=== PATIENT | male | born 1970 | race Caucasian/White ===

== ENCOUNTER 2019-07-03 12:09 | Inpatient (IN) | payer MEDICAID ==
[~2019-07-03] VITALS: Ht 170.2 cm; Wt 137.4 kg
[2019-07-03] MEDS ORDERED: OLAN2.5T3 PO (13:36)
[2019-07-03 14:56] LABS: BASOPHILS % (AUTO) 0.5 % (0.0-2.0); EOSINOPHILS % (AUTO) 0.5 % (1.0-6.0); HEMATOCRIT 41.9 % (41-53); HEMOGLOBIN 13.7 g/dL (13.5-17.5); LYMPHOCYTES # (AUTO) 2.8 K/uL (1.0-4.8); MEAN CORPUSCULAR HEMOGLOBIN 27.8 pg (26.0-34.0); MEAN CORPUSCULAR HGB CONC 32.6 G/dL (31.0-37.0); MEAN CORPUSCULAR VOLUME 85 fL (80-100); MONOCYTES % (AUTO) 7.1 % (2.0-9.0); NEUTROPHILS # (AUTO) 9.5 K/uL (1.8-7.7); NEUTROPHILS % (AUTO) 70.9 % (40.0-70.0); PLATELET COUNT (AUTO) 277 K/uL (150-450); RED BLOOD CELL COUNT(AUTO) 4.92 MIL/uL (4.50-5.90); RED CELL DISTRIBUTION WIDTH 13.8 % (11.5-14.5)
[2019-07-03] MEDS ORDERED: ZOLPIDEM TARTRATE 10 MG TABLET PO PRN (15:00)
[2019-07-03] MEDS ORDERED: LORazepam 2 MG TABLET PO PRN (15:00)
[2019-07-03] MEDS ORDERED: HALOPERIDOL 5 MG TABLET PO PRN (15:00)
[2019-07-03 15:08] LABS: ANION GAP 11 mmol/L (8-16); CALCIUM, TOTAL 8.7 mg/dL (8.8-10.5); CARBON DIOXIDE 27 mmol/L (22-29); CHLORIDE 105 mmol/L (98-107); CREATININE 1.04 mg/dL (0.60-1.30); GLOMERULAR FILTR. RATE CALC > 60 mL/min (>60); GLUCOSE,RANDOM 91 mg/dL (70-110); POTASSIUM 3.9 mmol/L (3.5-5.1); SODIUM SERUM 143 mmol/L (136-145); UREA NITROGEN, BLOOD 16 mg/dL (7-18)
[2019-07-03 15:16] LABS: ALANINE AMINOTRANSFERASE 37 U/L (12-78); ALBUMIN 3.6 g/dL (3.4-5.0); ALKALINE PHOSPHATASE 94 U/L (46-116); ASPARTATE AMINOTRANSFERASE 28 U/L (15-37); TOTAL PROTEIN, SERUM 7.9 g/dL (6.4-8.2)
[2019-07-03 17:11] VITALS: BP 137/79
[2019-07-03] MEDS ORDERED: GuaiFENesin/D-METHORPHAN/PHENYLEPH 5 ML LIQUID ORAL.SYG PO PRN (20:15)
[2019-07-03] MEDS ORDERED: GuaiFENesin/D-METHORPHAN [SUGAR-FREE] 200-20MG/10 ML SYRUP UDCUP PO PRN (21:30)
[2019-07-04 08:12] LABS: BASOPHILS % (AUTO) 0.3 % (0.0-2.0); EOSINOPHILS % (AUTO) 1.1 % (1.0-6.0); HEMOGLOBIN 12.6 g/dL (13.5-17.5); LYMPHOCYTES # (AUTO) 2.7 K/uL (1.0-4.8); LYMPHOCYTES % (AUTO) 30.3 % (22.0-44.0); MEAN CORPUSCULAR HEMOGLOBIN 28.3 pg (26.0-34.0); MEAN CORPUSCULAR HGB CONC 33.1 G/dL (31.0-37.0); MEAN CORPUSCULAR VOLUME 86 fL (80-100); MONOCYTES # (AUTO) 0.6 K/uL (0.1-1.0); MONOCYTES % (AUTO) 7.3 % (2.0-9.0); NEUTROPHILS # (AUTO) 5.4 K/uL (1.8-7.7); PLATELET COUNT (AUTO) 253 K/uL (150-450); RED BLOOD CELL COUNT(AUTO) 4.44 MIL/uL (4.50-5.90); RED CELL DISTRIBUTION WIDTH 13.5 % (11.5-14.5)
[2019-07-04 08:59] LABS: CHOL/HDL RATIO 3.7 (4.2-7.3); CHOLESTEROL 103 mg/dL (131-200); HCG,QUANTITATIVE < 1 mIU/mL (0-6); HDL CHOLESTEROL 28 mg/dL (40-60); LDL CHOL (CALC.) 68 mg/dL (0-130); TRIGLYCERIDES 35 mg/dL (15-150)
[2019-07-04] MEDS: AZITHROMYCIN 250 MG TABLET PO SCH (09:03)
[2019-07-04] MEDS: BACITRACIN 28.4 GM OINTMENT TP SCH ×2 (09:03→17:00)
[2019-07-04 10:03] VITALS: BP 95/65
[2019-07-04 18:38] VITALS: BP 120/70
[2019-07-04] MEDS ORDERED: ALBUTEROL SULFATE HFA 90 MCG/PUFF 8 GM INHALER IH PRN (19:30)
[2019-07-04] MEDS ORDERED: MAG HYDROX/AL HYDROX/SIMETH ES 30 ML SUSPENSION UDCUP PO PRN (19:30)
[2019-07-04] MEDS ORDERED: ACETAMINOPHEN 325 MG TABLET PO PRN (19:30)
[2019-07-04] MEDS ORDERED: CloNIDine HCL 0.1 MG TABLET PO PRN (19:30)
[2019-07-04] MEDS ORDERED: MAGNESIUM HYDROXIDE SUSPENSION 30 ML UDCUP PO PRN (19:30)
[2019-07-04] MEDS ORDERED: GuaiFENesin/D-METHORPHAN [SUGAR-FREE] 200-20MG/10 ML SYRUP UDCUP PO PRN (19:30)
[2019-07-04] MEDS ORDERED: LOPERAMIDE HCL 2 MG CAPSULE PO PRN (19:30)
[2019-07-04] MEDS ORDERED: DOCUSATE SODIUM 100 MG CAPSULE PO PRN (19:30)
[2019-07-04] MEDS ORDERED: PETROLATUM,WHITE 28 GM JELLY TP PRN (19:30)
[2019-07-04] MEDS ORDERED: ONDANSETRON HCL 4 MG TABLET PO PRN (19:30)
[2019-07-04] MEDS ORDERED: IBUPROFEN 400 MG TABLET PO PRN (19:30)
[2019-07-04] MEDS ORDERED: NICOTINE 14 MG/24 HOUR PATCH TD PRN (19:30)
[2019-07-04] MEDS ORDERED: OLANZapine 5 MG TABLET PO SCH (21:00)
[2019-07-04] MEDS ORDERED: OLANZapine 2.5 MG TABLET PO SCH (21:00)
[2019-07-05 06:41] VITALS: BP 113/74
[2019-07-05] MEDS: AZITHROMYCIN 250 MG TABLET PO SCH (08:32)
[2019-07-05] MEDS: BACITRACIN 28.4 GM OINTMENT TP SCH ×2 (08:33→16:54)
[2019-07-05 08:40] VITALS: BP 138/60
[2019-07-05 21:36] VITALS: BP 112/72
[2019-07-05] MEDS: SERTRALINE HCL 50 MG TABLET PO SCH (21:54)
[2019-07-05] MEDS: OLANZapine 2.5 MG TABLET PO SCH (21:54)
[2019-07-06 08:39] VITALS: BP 136/84
[2019-07-06] MEDS: BACITRACIN 28.4 GM OINTMENT TP SCH ×2 (09:18→17:14)
[2019-07-06] MEDS: AZITHROMYCIN 250 MG TABLET PO SCH (09:18)
[2019-07-06 16:21] VITALS: BP 130/79
[2019-07-06] MEDS: OLANZapine 2.5 MG TABLET PO SCH (20:16)
[2019-07-06] MEDS: SERTRALINE HCL 50 MG TABLET PO SCH (20:16)
[2019-07-07 07:08] VITALS: BP 126/73
[2019-07-07 08:07] VITALS: BP 126/60
[2019-07-07] MEDS: BACITRACIN 28.4 GM OINTMENT TP SCH ×2 (09:17→16:54)
[2019-07-07] MEDS: AZITHROMYCIN 250 MG TABLET PO SCH (09:17)
[2019-07-07 16:17] VITALS: BP 137/76
[2019-07-07] MEDS: SERTRALINE HCL 50 MG TABLET PO SCH (20:15)
[2019-07-07] MEDS: OLANZapine 2.5 MG TABLET PO SCH (20:15)
[2019-07-08 06:04] VITALS: BP 103/57
[2019-07-08] MEDS: BACITRACIN 28.4 GM OINTMENT TP SCH ×2 (08:58→17:35)
[2019-07-08] MEDS: AZITHROMYCIN 250 MG TABLET PO SCH (08:59)
[2019-07-08 13:14] VITALS: BP 118/76
[2019-07-08 16:22] VITALS: BP 105/80
[2019-07-08] MEDS ORDERED: LORazepam 2 MG/ML VIAL ONE (17:55)
[2019-07-08] MEDS ORDERED: DiphenhydrAMINE HCL 50 MG/ML VIAL ONE (17:55)
[2019-07-08] MEDS: OLANZapine 7.5 MG TABLET PO SCH (20:39)
[2019-07-08] MEDS ORDERED: OLANZapine 5 MG TABLET PO SCH (21:00)
[2019-07-08] MEDS ORDERED: SERTRALINE HCL 100 MG TABLET PO SCH (21:00)
[2019-07-09 01:31] VITALS: BP 135/85
[2019-07-09 08:07] VITALS: BP 133/78
[2019-07-09] MEDS: AZITHROMYCIN 250 MG TABLET PO SCH (08:10)
[2019-07-09] MEDS: BACITRACIN 28.4 GM OINTMENT TP SCH ×2 (08:11→16:22)
[2019-07-09 16:09] VITALS: BP 118/85
[2019-07-09] MEDS: OLANZapine 7.5 MG TABLET PO SCH (20:26)
[2019-07-09] MEDS: SERTRALINE HCL 100 MG TABLET PO SCH (20:26)
[2019-07-09] MEDS: DIVALPROEX SODIUM 500 MG ER TABLET PO SCH (20:26)
[2019-07-10 05:23] VITALS: BP 112/58
[2019-07-10 08:39] VITALS: BP 126/90
[2019-07-10] MEDS: BACITRACIN 28.4 GM OINTMENT TP SCH ×2 (08:50→16:34)
[2019-07-10 16:10] VITALS: BP 110/73
[2019-07-10] MEDS: AZITHROMYCIN 250 MG TABLET PO SCH (18:46)
[2019-07-10] MEDS: DIVALPROEX SODIUM 500 MG ER TABLET PO SCH (20:21)
[2019-07-10] MEDS: OLANZapine 7.5 MG TABLET PO SCH (20:21)
[2019-07-10] MEDS: SERTRALINE HCL 100 MG TABLET PO SCH (20:23)
[2019-07-11 00:28] VITALS: BP 108/72
[2019-07-11 08:30] VITALS: BP 114/58
[2019-07-11] MEDS: AZITHROMYCIN 250 MG TABLET PO SCH (08:37)
[2019-07-11] MEDS: BACITRACIN 28.4 GM OINTMENT TP SCH ×2 (08:37→16:08)
[2019-07-11] MEDS: NALTREXONE HCL 50 MG TABLET PO SCH (08:37)
[2019-07-11 16:05] VITALS: BP 122/67
[2019-07-11] MEDS: SERTRALINE HCL 100 MG TABLET PO SCH (20:21)
[2019-07-11] MEDS: DIVALPROEX SODIUM 500 MG ER TABLET PO SCH (20:21)
[2019-07-11] MEDS: OLANZapine 10 MG TABLET PO SCH (20:22)
[2019-07-12 01:47] VITALS: BP 126/70
[2019-07-12 06:25] VITALS: BP 152/68
[2019-07-12 08:06] VITALS: BP 135/81
[2019-07-12] MEDS: AZITHROMYCIN 250 MG TABLET PO SCH (08:25)
[2019-07-12] MEDS: NALTREXONE HCL 50 MG TABLET PO SCH (08:25)
[2019-07-12] MEDS: BACITRACIN 28.4 GM OINTMENT TP SCH ×2 (08:27→16:52)
[2019-07-12 16:02] VITALS: BP 106/80
[2019-07-12] MEDS: SERTRALINE HCL 100 MG TABLET PO SCH (20:13)
[2019-07-12] MEDS: OLANZapine 10 MG TABLET PO SCH (20:13)
[2019-07-12] MEDS: DIVALPROEX SODIUM 500 MG ER TABLET PO SCH (20:13)
[2019-07-13 06:15] VITALS: BP 118/74
[2019-07-13 08:18] VITALS: BP 128/60
[2019-07-13] MEDS: AZITHROMYCIN 250 MG TABLET PO SCH (08:31)
[2019-07-13] MEDS: BACITRACIN 28.4 GM OINTMENT TP SCH ×2 (08:31→16:09)
[2019-07-13] MEDS: NALTREXONE HCL 50 MG TABLET PO SCH (08:31)
[2019-07-13 16:10] VITALS: BP 153/74
[2019-07-13] MEDS: SERTRALINE HCL 100 MG TABLET PO SCH (20:17)
[2019-07-13] MEDS: OLANZapine 10 MG TABLET PO SCH (20:17)
[2019-07-13] MEDS: DIVALPROEX SODIUM 500 MG ER TABLET PO SCH (20:17)
[2019-07-14 06:06] VITALS: BP 116/66
[2019-07-14 08:18] VITALS: BP 113/61
[2019-07-14] MEDS: BACITRACIN 28.4 GM OINTMENT TP SCH ×2 (09:00→16:25)
[2019-07-14] MEDS: NALTREXONE HCL 50 MG TABLET PO SCH (09:18)
[2019-07-14] MEDS: AZITHROMYCIN 250 MG TABLET PO SCH (09:18)
[2019-07-14 16:47] VITALS: BP 109/70
[2019-07-14] MEDS: DIVALPROEX SODIUM 500 MG ER TABLET PO SCH (20:21)
[2019-07-14] MEDS: SERTRALINE HCL 100 MG TABLET PO SCH (20:21)
[2019-07-14] MEDS: OLANZapine 10 MG TABLET PO SCH (20:21)
[2019-07-15 05:25] VITALS: BP 121/96
[2019-07-15 08:10] VITALS: BP 128/71
[2019-07-15] MEDS: AZITHROMYCIN 250 MG TABLET PO SCH (08:53)
[2019-07-15] MEDS: BACITRACIN 28.4 GM OINTMENT TP SCH (08:54)
[2019-07-15] MEDS: NALTREXONE HCL 50 MG TABLET PO SCH (08:54)
[2019-07-15] MEDS ORDERED: SERT100T12 PO (09:25)
[2019-07-15] MEDS ORDERED: DIVA500T52 PO (09:25)
[2019-07-15] MEDS ORDERED: OLAN10TA20 PO (09:25)
[2019-07-15] MEDS ORDERED: NALT50TA PO (09:25)
== END 2019-07-15 11:40 | disposition home or self-care (01) | DRG 750 ==
LOC: EMS 12:12 → B2S 15:12
PROVIDERS: ADMIT Psychiatry & Neurology Psychiatry; ATTEND Psychiatry & Neurology Psychiatry
DX: F25.1 Schizoaffective disorder, depressive type (principal); I50.9 Heart failure, unspecified; R45.851 Suicidal ideations; I11.0 Hypertensive heart disease with heart failure; F41.9 Anxiety disorder, unspecified; G47.00 Insomnia, unspecified; D72.829 Elevated white blood cell count, unspecified; D64.9 Anemia, unspecified; F15.90 Other stimulant use, unspecified, uncomplicated; R45.87 Impulsiveness; Z59.0 Homelessness; Z86.711 Personal history of pulmonary embolism
CPT/HCPCS: 84443; G0480; J1200; J2060; J3230

== ENCOUNTER 2019-07-04 11:16 | Emergency (ER) | payer MEDICAID ==
[~2019-07-04] VITALS: Ht 167.6 cm; Wt 136.8 kg
[~2019-07-04 11:16] MED LIST: OLAN2.5T3 PO
[2019-07-04 17:13] VITALS: BP 113/52
== END 2019-07-04 18:20 | disposition home or self-care (01) ==
LOC: EMS 11:19
DX: R05 Cough (principal); I11.0 Hypertensive heart disease with heart failure; I50.9 Heart failure, unspecified; F15.90 Other stimulant use, unspecified, uncomplicated; F17.210 Nicotine dependence, cigarettes, uncomplicated

== ENCOUNTER 2020-02-14 14:08 | Inpatient (IN) | payer MEDICAID ==
[~2020-02-14] VITALS: Ht 170.2 cm; Wt 136.1 kg
[~2020-02-14 14:08] MED LIST changes: +DIVA-80 PO; +NALT50TA PO; +OLAN10TA20 PO; -OLAN2.5T3 PO; +SERT100T12 PO
[2020-02-14] MEDS ORDERED: HALOPERIDOL 5 MG TABLET PO PRN (19:45)
[2020-02-14 19:47] VITALS: BP 133/88
[2020-02-15 06:16] VITALS: BP 118/85
[2020-02-15 07:39] LABS: BASOPHILS % (AUTO) 0.4 % (0.0-2.0); EOSINOPHILS % (AUTO) 1.4 % (1.0-6.0); HEMATOCRIT 38.9 % (41-53); HEMOGLOBIN 13.1 g/dL (13.5-17.5); LYMPHOCYTES # (AUTO) 2.8 K/uL (1.0-4.8); MEAN CORPUSCULAR HEMOGLOBIN 29.2 pg (26.0-34.0); MEAN CORPUSCULAR HGB CONC 33.8 G/dL (31.0-37.0); MEAN CORPUSCULAR VOLUME 86 fL (80-100); MONOCYTES # (AUTO) 0.7 K/uL (0.1-1.0); MONOCYTES % (AUTO) 7.5 % (2.0-9.0); NEUTROPHILS # (AUTO) 5.1 K/uL (1.8-7.7); NEUTROPHILS % (AUTO) 58.7 % (40.0-70.0); PLATELET COUNT (AUTO) 229 K/uL (150-450); RED CELL DISTRIBUTION WIDTH 14.3 % (11.5-14.5)
[2020-02-15 07:56] LABS: HEMOGLOBIN A1C 5.6 % (3.8-5.6)
[2020-02-15 08:23] VITALS: BP 114/72
[2020-02-15 08:29] LABS: ALANINE AMINOTRANSFERASE 36 U/L (12-78); ALBUMIN 2.9 g/dL (3.4-5.0); ALKALINE PHOSPHATASE 80 U/L (46-116); ANION GAP 8 mmol/L (8-16); ASPARTATE AMINOTRANSFERASE 30 U/L (15-37); BILIRUBIN,TOTAL 0.5 mg/dL (0.1-1.0); CALCIUM, TOTAL 8.6 mg/dL (8.8-10.5); CARBON DIOXIDE 30 mmol/L (22-29); CHLORIDE 103 mmol/L (98-107); CHOL/HDL RATIO 4.5 (4.2-7.3); CHOLESTEROL 125 mg/dL (131-200); CREATININE 0.99 mg/dL (0.60-1.30); FREE T4 (FREE THYROXINE) 1.29 ng/dL (0.76-1.46); GLOMERULAR FILTR. RATE CALC > 60 mL/min (>60); GLUCOSE,RANDOM 92 mg/dL (70-110); HDL CHOLESTEROL 28 mg/dL (40-60); LDL CHOL (CALC.) 87 mg/dL (0-130); POTASSIUM 3.1 mmol/L (3.5-5.1); SODIUM SERUM 141 mmol/L (136-145); TRIGLYCERIDES 50 mg/dL (15-150); UREA NITROGEN, BLOOD 16 mg/dL (7-18)
[2020-02-15] MEDS ORDERED: POTASSIUM CHLORIDE 20 MEQ ER TABLET PO ONE (08:45)
[2020-02-15] MEDS: NALTREXONE HCL 50 MG TABLET PO SCH (10:28)
[2020-02-15] MEDS: SERTRALINE HCL 100 MG TABLET PO SCH (10:28)
[2020-02-15] MEDS: LORazepam 2 MG TABLET PO PRN (17:02)
[2020-02-15 20:30] VITALS: BP 105/67
[2020-02-15] MEDS: TOPIRAMATE 100 MG TABLET PO SCH (21:41)
[2020-02-15] MEDS: PRAZOSIN HCL 2 MG CAPSULE PO SCH (21:41)
[2020-02-15] MEDS: QUEtiapine FUMARATE 200 MG TABLET PO SCH (21:41)
[2020-02-16 02:20] VITALS: BP 110/74
[2020-02-16] MEDS: LORazepam 2 MG TABLET PO PRN (08:52)
[2020-02-16] MEDS: SERTRALINE HCL 100 MG TABLET PO SCH (08:52)
[2020-02-16] MEDS: NALTREXONE HCL 50 MG TABLET PO SCH (08:52)
[2020-02-16 09:05] VITALS: BP 100/66
[2020-02-16] MEDS ORDERED: POTASSIUM CHLORIDE 20 MEQ ER TABLET PO ONE (09:30)
[2020-02-16 16:43] VITALS: BP 111/61
[2020-02-16 20:50] VITALS: BP 106/75
[2020-02-16] MEDS: QUEtiapine FUMARATE 200 MG TABLET PO SCH (20:53)
[2020-02-16] MEDS: PRAZOSIN HCL 2 MG CAPSULE PO SCH (20:53)
[2020-02-16] MEDS: TOPIRAMATE 100 MG TABLET PO SCH (20:53)
[2020-02-17 06:06] VITALS: BP 109/72
[2020-02-17] MEDS: SERTRALINE HCL 100 MG TABLET PO SCH (08:50)
[2020-02-17] MEDS: NALTREXONE HCL 50 MG TABLET PO SCH (08:52)
[2020-02-17 16:17] VITALS: BP 133/73
[2020-02-17] MEDS: LORazepam 2 MG TABLET PO PRN (16:57)
[2020-02-17] MEDS: QUEtiapine FUMARATE 200 MG TABLET PO SCH (20:35)
[2020-02-17] MEDS: TOPIRAMATE 100 MG TABLET PO SCH (20:35)
[2020-02-17] MEDS: PRAZOSIN HCL 2 MG CAPSULE PO SCH (20:35)
[2020-02-18 03:04] VITALS: BP 124/70
[2020-02-18 08:27] VITALS: BP 127/72
[2020-02-18] MEDS: SERTRALINE HCL 100 MG TABLET PO SCH (08:56)
[2020-02-18] MEDS: NALTREXONE HCL 50 MG TABLET PO SCH (08:57)
[2020-02-18 17:03] VITALS: BP 106/68
[2020-02-18] MEDS: PRAZOSIN HCL 2 MG CAPSULE PO SCH (20:22)
[2020-02-18] MEDS: TOPIRAMATE 100 MG TABLET PO SCH (20:22)
[2020-02-18] MEDS: QUEtiapine FUMARATE 200 MG TABLET PO SCH (20:22)
[2020-02-19 05:26] VITALS: BP 110/68
[2020-02-19 08:10] VITALS: BP 117/69
[2020-02-19] MEDS: NALTREXONE HCL 50 MG TABLET PO SCH (09:09)
[2020-02-19] MEDS: SERTRALINE HCL 100 MG TABLET PO SCH (09:09)
[2020-02-19 16:13] VITALS: BP 112/74
[2020-02-19] MEDS: PRAZOSIN HCL 2 MG CAPSULE PO SCH (20:38)
[2020-02-19] MEDS: TOPIRAMATE 100 MG TABLET PO SCH (20:38)
[2020-02-19] MEDS: QUEtiapine FUMARATE 200 MG TABLET PO SCH (20:38)
[2020-02-20 06:32] VITALS: BP 114/76
[2020-02-20] MEDS: SERTRALINE HCL 100 MG TABLET PO SCH (08:21)
[2020-02-20] MEDS: NALTREXONE HCL 50 MG TABLET PO SCH (08:21)
[2020-02-20 08:37] VITALS: BP 109/74
[2020-02-20 16:15] VITALS: BP 132/80
[2020-02-20] MEDS: PRAZOSIN HCL 2 MG CAPSULE PO SCH (20:17)
[2020-02-20] MEDS: QUEtiapine FUMARATE 200 MG TABLET PO SCH (20:17)
[2020-02-20] MEDS: TOPIRAMATE 100 MG TABLET PO SCH (20:17)
[2020-02-21 06:29] VITALS: BP 127/87
[2020-02-21] MEDS: SERTRALINE HCL 100 MG TABLET PO SCH (08:35)
[2020-02-21] MEDS: NALTREXONE HCL 50 MG TABLET PO SCH (08:36)
[2020-02-21 08:52] VITALS: BP 122/70
[2020-02-21 16:30] VITALS: BP 151/84
[2020-02-21] MEDS: QUEtiapine FUMARATE 200 MG TABLET PO SCH (20:53)
[2020-02-21] MEDS: PRAZOSIN HCL 2 MG CAPSULE PO SCH (20:53)
[2020-02-21] MEDS: TOPIRAMATE 100 MG TABLET PO SCH (20:53)
[2020-02-22 01:47] VITALS: BP 126/72
[2020-02-22] MEDS: SERTRALINE HCL 100 MG TABLET PO SCH (08:20)
[2020-02-22] MEDS: NALTREXONE HCL 50 MG TABLET PO SCH (08:21)
[2020-02-22 09:26] VITALS: BP 100/63
[2020-02-22 16:14] VITALS: BP 138/86
[2020-02-22] MEDS: ZOLPIDEM TARTRATE 10 MG TABLET PO PRN (20:25)
[2020-02-22] MEDS: TOPIRAMATE 100 MG TABLET PO SCH (20:25)
[2020-02-22] MEDS: QUEtiapine FUMARATE 200 MG TABLET PO SCH (20:25)
[2020-02-22] MEDS: PRAZOSIN HCL 2 MG CAPSULE PO SCH (20:25)
[2020-02-23 03:29] VITALS: BP 132/82
[2020-02-23] MEDS: SERTRALINE HCL 100 MG TABLET PO SCH (08:46)
[2020-02-23] MEDS: NALTREXONE HCL 50 MG TABLET PO SCH (08:47)
[2020-02-23 08:54] VITALS: BP 110/70
[2020-02-23 16:57] VITALS: BP 111/79
[2020-02-23] MEDS: QUEtiapine FUMARATE 200 MG TABLET PO SCH (20:40)
[2020-02-23] MEDS: TOPIRAMATE 100 MG TABLET PO SCH (20:40)
[2020-02-23] MEDS: ZOLPIDEM TARTRATE 10 MG TABLET PO PRN (20:40)
[2020-02-23] MEDS: PRAZOSIN HCL 2 MG CAPSULE PO SCH (20:40)
[2020-02-24 04:11] VITALS: BP 130/78
[2020-02-24 08:10] VITALS: BP 112/69
[2020-02-24] MEDS: SERTRALINE HCL 100 MG TABLET PO SCH (09:08)
[2020-02-24] MEDS: NALTREXONE HCL 50 MG TABLET PO SCH (09:09)
[2020-02-24 19:47] VITALS: BP 129/78
[2020-02-24] MEDS: TOPIRAMATE 100 MG TABLET PO SCH (20:05)
[2020-02-24] MEDS: QUEtiapine FUMARATE 200 MG TABLET PO SCH (20:06)
[2020-02-24] MEDS: ZOLPIDEM TARTRATE 10 MG TABLET PO PRN (20:15)
[2020-02-24] MEDS: PRAZOSIN HCL 2 MG CAPSULE PO SCH (20:21)
[2020-02-25 00:12] VITALS: BP 125/74
[2020-02-25] MEDS: NALTREXONE HCL 50 MG TABLET PO SCH (08:11)
[2020-02-25] MEDS: SERTRALINE HCL 100 MG TABLET PO SCH (08:12)
[2020-02-25 08:21] VITALS: BP 108/80
[2020-02-25 16:08] VITALS: BP 118/70
[2020-02-25 20:00] VITALS: BP 113/73
[2020-02-25] MEDS: QUEtiapine FUMARATE 200 MG TABLET PO SCH (20:04)
[2020-02-25] MEDS: PRAZOSIN HCL 2 MG CAPSULE PO SCH (20:04)
[2020-02-25] MEDS: TOPIRAMATE 100 MG TABLET PO SCH (20:04)
[2020-02-25] MEDS: ZOLPIDEM TARTRATE 10 MG TABLET PO PRN (21:05)
[2020-02-26 00:15] VITALS: BP 122/68
[2020-02-26 08:31] VITALS: BP 107/60
[2020-02-26] MEDS: NALTREXONE HCL 50 MG TABLET PO SCH (08:47)
[2020-02-26] MEDS: SERTRALINE HCL 100 MG TABLET PO SCH (08:47)
[2020-02-26 16:04] VITALS: BP 134/74
[2020-02-26] MEDS: PRAZOSIN HCL 2 MG CAPSULE PO SCH (20:15)
[2020-02-26] MEDS: TOPIRAMATE 100 MG TABLET PO SCH (20:15)
[2020-02-26] MEDS: QUEtiapine FUMARATE 200 MG TABLET PO SCH (20:15)
[2020-02-26] MEDS: ZOLPIDEM TARTRATE 10 MG TABLET PO PRN (20:41)
[2020-02-27 00:59] VITALS: BP 109/79
[2020-02-27 08:15] VITALS: BP 107/60
[2020-02-27] MEDS: SERTRALINE HCL 100 MG TABLET PO SCH (08:50)
[2020-02-27] MEDS: NALTREXONE HCL 50 MG TABLET PO SCH (08:50)
[2020-02-27 16:25] VITALS: BP 130/82
[2020-02-27 18:39] VITALS: BP 130/82
[2020-02-27] MEDS: QUEtiapine FUMARATE 200 MG TABLET PO SCH (19:54)
[2020-02-27] MEDS: PRAZOSIN HCL 2 MG CAPSULE PO SCH (19:54)
[2020-02-27] MEDS: TOPIRAMATE 100 MG TABLET PO SCH (19:54)
[2020-02-27] MEDS: ZOLPIDEM TARTRATE 10 MG TABLET PO PRN (20:40)
[2020-02-28 06:14] VITALS: BP 133/81
[2020-02-28 08:05] VITALS: BP 121/78
[2020-02-28] MEDS: SERTRALINE HCL 100 MG TABLET PO SCH (08:24)
[2020-02-28] MEDS: NALTREXONE HCL 50 MG TABLET PO SCH (08:24)
[2020-02-28] MEDS ORDERED: NALT50TA PO (12:22)
[2020-02-28] MEDS ORDERED: PRAZ2 PO (12:22)
[2020-02-28] MEDS ORDERED: SERT100T12 PO (12:22)
[2020-02-28] MEDS ORDERED: TOPI100T37 PO (12:22)
[2020-02-28] MEDS ORDERED: QUET200T29 PO (12:22)
== END 2020-02-28 14:45 | disposition home or self-care (01) | DRG 750 ==
LOC: B3A 20:01 → B2S 02-24 14:55 → B3A 02-24 14:55
DX: F25.1 Schizoaffective disorder, depressive type (principal); R45.851 Suicidal ideations; Z91.5 Personal history of self-harm; Z59.0 Homelessness; F15.10 Other stimulant abuse, uncomplicated; F10.10 Alcohol abuse, uncomplicated; Y90.9 Presence of alcohol in blood, level not specified; F43.12 Post-traumatic stress disorder, chronic; E87.6 Hypokalemia; D64.9 Anemia, unspecified; Z79.899 Other long term (current) drug therapy
CPT/HCPCS: 83036; 84132; 84439; 84443

== ENCOUNTER 2020-02-14 15:50 | Emergency (ER) | payer MEDICAID, OTHER ==
[~2020-02-14] VITALS: Ht 170.2 cm; Wt 100.0 kg
[2020-02-14 17:19] LABS: COVID AG,FIA SOURCE NASAL SWAB
[2020-02-14 18:12] VITALS: BP 122/71
== END 2020-02-14 19:12 | disposition home or self-care (01) ==
LOC: EMS 15:50
DX: Z20.828 Contact with and (suspected) exposure to other viral communicable diseases (principal); I11.0 Hypertensive heart disease with heart failure; I50.9 Heart failure, unspecified; F17.210 Nicotine dependence, cigarettes, uncomplicated; F15.90 Other stimulant use, unspecified, uncomplicated
CPT/HCPCS: 87426

== ENCOUNTER 2020-03-12 17:07 | Inpatient (IN) | payer MEDICAID ==
[~2020-03-12] VITALS: Ht 170.2 cm; Wt 129.2 kg
[~2020-03-12 17:07] MED LIST changes: -DIVA-80 PO; -OLAN10TA20 PO; +PRAZ2 PO; +QUET200T29 PO; +TOPI100T37 PO
[2020-03-12] MEDS ORDERED: HALOPERIDOL 5 MG TABLET PO PRN (19:45)
[2020-03-12] MEDS ORDERED: ZOLPIDEM TARTRATE 10 MG TABLET PO PRN (19:45)
[2020-03-12] MEDS ORDERED: LORazepam 2 MG TABLET PO PRN (19:45)
[2020-03-12 19:56] VITALS: BP 123/87
[2020-03-12] MEDS ORDERED: PNEUMOCOCCAL VACCINE POLYVALENT 0.5 ML VIAL [PPSV23] IM ONE (20:15)
[2020-03-12] MEDS ORDERED: INFLUENZA VIRUS VACCINE QVS 2020-21 (6MO+)/PF 60 MCG/0.5 ML SYRINGE IM ONE (20:15)
[2020-03-13] VITALS: BP 144/83
[2020-03-13 07:38] LABS: BASOPHILS % (AUTO) 0.2 % (0.0-2.0); EOSINOPHILS % (AUTO) 1.3 % (1.0-6.0); HEMATOCRIT 41.2 % (41-53); HEMOGLOBIN 13.4 g/dL (13.5-17.5); LYMPHOCYTES # (AUTO) 2.6 K/uL (1.0-4.8); LYMPHOCYTES % (AUTO) 31.3 % (22.0-44.0); MEAN CORPUSCULAR HEMOGLOBIN 28.5 pg (26.0-34.0); MEAN CORPUSCULAR HGB CONC 32.5 G/dL (31.0-37.0); MEAN CORPUSCULAR VOLUME 88 fL (80-100); MONOCYTES # (AUTO) 0.8 K/uL (0.1-1.0); MONOCYTES % (AUTO) 9.1 % (2.0-9.0); NEUTROPHILS # (AUTO) 4.8 K/uL (1.8-7.7); NEUTROPHILS % (AUTO) 58.1 % (40.0-70.0); PLATELET COUNT (AUTO) 283 K/uL (150-450); RED BLOOD CELL COUNT(AUTO) 4.69 MIL/uL (4.50-5.90); RED CELL DISTRIBUTION WIDTH 14.5 % (11.5-14.5)
[2020-03-13] MEDS ORDERED: NICOTINE 14 MG/24 HOUR PATCH TD PRN (07:45)
[2020-03-13] MEDS ORDERED: ACETAMINOPHEN 325 MG TABLET PO PRN (07:45)
[2020-03-13] MEDS ORDERED: GuaiFENesin/D-METHORPHAN [SUGAR-FREE] 200-20MG/10 ML SYRUP UDCUP PO PRN (07:45)
[2020-03-13] MEDS ORDERED: ALBUTEROL SULFATE HFA 90 MCG/PUFF 8 GM INHALER IH PRN (07:45)
[2020-03-13] MEDS ORDERED: ONDANSETRON HCL 4 MG TABLET PO PRN (07:45)
[2020-03-13] MEDS ORDERED: CloNIDine HCL 0.1 MG TABLET PO PRN (07:45)
[2020-03-13] MEDS ORDERED: MAG HYDROX/AL HYDROX/SIMETH ES 30 ML SUSPENSION UDCUP PO PRN (07:45)
[2020-03-13] MEDS ORDERED: MAGNESIUM HYDROXIDE SUSPENSION 30 ML UDCUP PO PRN (07:45)
[2020-03-13] MEDS ORDERED: PETROLATUM,WHITE 28 GM JELLY TP PRN (07:45)
[2020-03-13] MEDS ORDERED: DOCUSATE SODIUM 100 MG CAPSULE PO PRN (07:45)
[2020-03-13] MEDS ORDERED: IBUPROFEN 400 MG TABLET PO PRN (07:45)
[2020-03-13] MEDS ORDERED: LOPERAMIDE HCL 2 MG CAPSULE PO PRN (07:45)
[2020-03-13 08:04] LABS: ALANINE AMINOTRANSFERASE 27 U/L (12-78); ALBUMIN 2.7 g/dL (3.4-5.0); ALKALINE PHOSPHATASE 84 U/L (46-116); ANION GAP 5 mmol/L (8-16); ASPARTATE AMINOTRANSFERASE 24 U/L (15-37); BILIRUBIN,TOTAL 0.3 mg/dL (0.1-1.0); CALCIUM, TOTAL 8.7 mg/dL (8.8-10.5); CARBON DIOXIDE 31 mmol/L (22-29); CHLORIDE 106 mmol/L (98-107); CHOL/HDL RATIO 4.4 (4.2-7.3); CHOLESTEROL 124 mg/dL (131-200); CREATININE 0.86 mg/dL (0.60-1.30); FREE T4 (FREE THYROXINE) 1.28 ng/dL (0.76-1.46); GLOMERULAR FILTR. RATE CALC > 60 mL/min (>60); GLUCOSE,RANDOM 99 mg/dL (70-110); HDL CHOLESTEROL 28 mg/dL (40-60); LDL CHOL (CALC.) 77 mg/dL (0-130); POTASSIUM 3.8 mmol/L (3.5-5.1); SODIUM SERUM 142 mmol/L (136-145); THYROID STIMULATING HORMONE 1.88 uIU/mL (0.36-3.74); TOTAL PROTEIN, SERUM 6.6 g/dL (6.4-8.2); TRIGLYCERIDES 94 mg/dL (15-150); UREA NITROGEN, BLOOD 13 mg/dL (7-18)
[2020-03-13 08:42] VITALS: BP 107/66
[2020-03-13] MEDS: SERTRALINE HCL 100 MG TABLET PO SCH (09:52)
[2020-03-13 16:12] VITALS: BP 110/77
[2020-03-13] MEDS: TOPIRAMATE 100 MG TABLET PO SCH (20:25)
[2020-03-13] MEDS: QUEtiapine FUMARATE 200 MG TABLET PO SCH (20:25)
[2020-03-13] MEDS: PRAZOSIN HCL 2 MG CAPSULE PO SCH (20:25)
[2020-03-14 06:17] VITALS: BP 128/81
[2020-03-14] MEDS: NALTREXONE HCL 50 MG TABLET PO SCH (08:29)
[2020-03-14] MEDS: SERTRALINE HCL 100 MG TABLET PO SCH (08:30)
[2020-03-14 08:40] VITALS: BP 108/66
[2020-03-14 17:40] VITALS: BP 118/84
[2020-03-14] MEDS: QUEtiapine FUMARATE 200 MG TABLET PO SCH (20:20)
[2020-03-14] MEDS: PRAZOSIN HCL 2 MG CAPSULE PO SCH (20:20)
[2020-03-14] MEDS: TOPIRAMATE 100 MG TABLET PO SCH (20:20)
[2020-03-15 00:32] VITALS: BP 114/67
[2020-03-15] MEDS: SERTRALINE HCL 100 MG TABLET PO SCH (08:38)
[2020-03-15] MEDS: NALTREXONE HCL 50 MG TABLET PO SCH (08:38)
[2020-03-15 08:40] VITALS: BP 132/90
[2020-03-15 16:25] VITALS: BP 110/79
[2020-03-15] MEDS: QUEtiapine FUMARATE 200 MG TABLET PO SCH (20:45)
[2020-03-15] MEDS: PRAZOSIN HCL 2 MG CAPSULE PO SCH (20:45)
[2020-03-15] MEDS: TOPIRAMATE 100 MG TABLET PO SCH (20:46)
[2020-03-16 00:26] VITALS: BP 112/73
[2020-03-16 08:44] VITALS: BP 107/62
[2020-03-16] MEDS: NALTREXONE HCL 50 MG TABLET PO SCH (09:16)
[2020-03-16] MEDS: SERTRALINE HCL 100 MG TABLET PO SCH (09:16)
[2020-03-16 16:25] VITALS: BP 140/87
[2020-03-16] MEDS: PRAZOSIN HCL 2 MG CAPSULE PO SCH (20:26)
[2020-03-16] MEDS: QUEtiapine FUMARATE 200 MG TABLET PO SCH (20:27)
[2020-03-16] MEDS: TOPIRAMATE 100 MG TABLET PO SCH (20:27)
[2020-03-17 05:36] VITALS: BP 128/80
[2020-03-17 08:16] VITALS: BP 129/64
[2020-03-17] MEDS: SERTRALINE HCL 100 MG TABLET PO SCH (09:05)
[2020-03-17] MEDS: NALTREXONE HCL 50 MG TABLET PO SCH (09:05)
[2020-03-17 16:14] VITALS: BP 111/64
[2020-03-17 19:15] LABS: COVID AG,FIA SOURCE NASOPHARYNGEAL
[2020-03-17] MEDS: PRAZOSIN HCL 2 MG CAPSULE PO SCH (20:27)
[2020-03-17] MEDS: QUEtiapine FUMARATE 200 MG TABLET PO SCH (20:52)
[2020-03-17] MEDS: TOPIRAMATE 100 MG TABLET PO SCH (20:52)
[2020-03-18 04:22] VITALS: BP 125/71
[2020-03-18 08:54] VITALS: BP 131/89
[2020-03-18] MEDS: SERTRALINE HCL 100 MG TABLET PO SCH (08:56)
[2020-03-18] MEDS: FOLIC ACID 1 MG TABLET PO SCH (08:56)
[2020-03-18] MEDS: NALTREXONE HCL 50 MG TABLET PO SCH (08:56)
[2020-03-18] MEDS: THIAMINE 100 MG TABLET PO SCH (08:56)
[2020-03-18 16:31] VITALS: BP 122/81
[2020-03-18 20:20] VITALS: BP 118/90
[2020-03-18] MEDS: QUEtiapine FUMARATE 200 MG TABLET PO SCH (20:23)
[2020-03-18] MEDS: TOPIRAMATE 100 MG TABLET PO SCH (20:23)
[2020-03-18] MEDS: PRAZOSIN HCL 2 MG CAPSULE PO SCH (20:23)
[2020-03-19 06:03] VITALS: BP 112/73
[2020-03-19 08:35] VITALS: BP 126/92
[2020-03-19] MEDS: NALTREXONE HCL 50 MG TABLET PO SCH (08:51)
[2020-03-19] MEDS: FOLIC ACID 1 MG TABLET PO SCH (08:51)
[2020-03-19] MEDS: SERTRALINE HCL 100 MG TABLET PO SCH (08:51)
[2020-03-19] MEDS: THIAMINE 100 MG TABLET PO SCH (08:52)
[2020-03-19 16:19] VITALS: BP 135/66
[2020-03-19] MEDS: QUEtiapine FUMARATE 200 MG TABLET PO SCH (20:46)
[2020-03-19] MEDS: PRAZOSIN HCL 2 MG CAPSULE PO SCH (20:46)
[2020-03-19] MEDS: TOPIRAMATE 100 MG TABLET PO SCH (20:46)
[2020-03-20 04:31] VITALS: BP 114/78
[2020-03-20 08:11] VITALS: BP 140/94
[2020-03-20] MEDS: NALTREXONE HCL 50 MG TABLET PO SCH (08:33)
[2020-03-20] MEDS: SERTRALINE HCL 100 MG TABLET PO SCH (08:34)
[2020-03-20] MEDS: THIAMINE 100 MG TABLET PO SCH (08:34)
[2020-03-20] MEDS: FOLIC ACID 1 MG TABLET PO SCH (08:34)
[2020-03-20] MEDS ORDERED: PRAZ2 PO (08:57)
[2020-03-20] MEDS ORDERED: TOPI100T37 PO (08:57)
[2020-03-20] MEDS ORDERED: QUET200T29 PO (08:57)
[2020-03-20] MEDS ORDERED: SERT100T12 PO (08:57)
[2020-03-20] MEDS ORDERED: NALT50TA PO (08:57)
== END 2020-03-20 13:00 | disposition home or self-care (01) | DRG 750 ==
LOC: B2S 22:08
PROC: 3E0234Z Introduction of Serum, Toxoid and Vaccine into Muscle, Percutaneous Approach (ICD-10-PCS; principal; 2020-03-12)
PROC: 3E02340 Introduction of Influenza Vaccine into Muscle, Percutaneous Approach (ICD-10-PCS; 2020-03-12)
DX: F25.1 Schizoaffective disorder, depressive type (principal); R45.851 Suicidal ideations; Z91.5 Personal history of self-harm; Z59.0 Homelessness; F15.10 Other stimulant abuse, uncomplicated; F10.10 Alcohol abuse, uncomplicated; Y90.9 Presence of alcohol in blood, level not specified; F43.12 Post-traumatic stress disorder, chronic; D64.9 Anemia, unspecified; E83.51 Hypocalcemia; F19.10 Other psychoactive substance abuse, uncomplicated; Z79.899 Other long term (current) drug therapy; Z20.828 Contact with and (suspected) exposure to other viral communicable diseases; Z23 Encounter for immunization
CPT/HCPCS: 84436; 84439; 84443; 87081; 87426; 90686

== ENCOUNTER 2020-03-12 19:27 | Emergency (ER) | payer MEDICAID, OTHER ==
[~2020-03-12] VITALS: Ht 170.2 cm; Wt 109.1 kg
[2020-03-12 20:26] LABS: COVID AG,FIA SOURCE NASOPHARYNGEAL
[2020-03-12 21:30] VITALS: BP 120/80
== END 2020-03-12 22:41 | disposition home or self-care (01) ==
LOC: EMS 19:27
DX: Z20.828 Contact with and (suspected) exposure to other viral communicable diseases (principal); I11.0 Hypertensive heart disease with heart failure; I50.9 Heart failure, unspecified; F17.210 Nicotine dependence, cigarettes, uncomplicated; F15.90 Other stimulant use, unspecified, uncomplicated
CPT/HCPCS: 87426; 99283

== ENCOUNTER 2024-12-07 04:10 | Inpatient (IN) | payer MEDICARE, MEDICAID ==
[~2024-12-07] VITALS: Ht 170.2 cm; Wt 93.1 kg
[~2024-12-07 04:10] MED LIST changes: -NALT50TA PO; +NALT50TA6 PO; -QUET200T29 PO; +QUET200T30 PO; +SERT-440 PO; -SERT100T12 PO; +TOPI-258 PO; -TOPI100T37 PO
[2024-12-07] MEDS ORDERED: ZOLPIDEM TARTRATE 10 MG TABLET PO PRN (05:45)
[2024-12-07 11:44] VITALS: BP 111/82; PULSE 74; RESP 18; TEMP 97.3; O2SAT 100
[2024-12-07 20:19] VITALS: BP 98/78; PULSE 66; RESP 17; TEMP 97.4; O2SAT 98
[2024-12-08] MEDS ORDERED: ALBUTEROL SULFATE HFA 90 MCG/PUFF 8 GM INHALER IH PRN (04:30)
[2024-12-08] MEDS ORDERED: IBUPROFEN 600 MG TABLET PO PRN (04:30)
[2024-12-08] MEDS ORDERED: OMEPRAZOLE 20 MG CAPSULE PO PRN (04:30)
[2024-12-08] MEDS ORDERED: BACITRACIN 28 GM OINTMENT TP PRN (04:30)
[2024-12-08] MEDS ORDERED: DOCUSATE SODIUM 100 MG CAPSULE PO PRN (04:30)
[2024-12-08] MEDS ORDERED: BENZOCAINE/MENTHOL [CEPACOL] LOZENGE PO PRN (04:30)
[2024-12-08] MEDS ORDERED: PETROLATUM,WHITE 28 GM JELLY TP PRN (04:30)
[2024-12-08] MEDS ORDERED: ONDANSETRON 4 MG TABLET PO PRN (04:30)
[2024-12-08] MEDS ORDERED: ACETAMINOPHEN 325 MG TABLET PO PRN (04:30)
[2024-12-08] MEDS ORDERED: MAGNESIUM HYDROXIDE SUSPENSION 30 ML UDCUP PO PRN (04:30)
[2024-12-08] MEDS ORDERED: MAG HYDROX/ALUMINUM HYD/SIMETH ES 30 ML SUSPENSION UDCUP PO PRN (04:30)
[2024-12-08] MEDS ORDERED: LOPERAMIDE HCL 2 MG CAPSULE PO PRN (04:30)
[2024-12-08 08:07] VITALS: BP 92/62; PULSE 62; RESP 16; TEMP 97.4; O2SAT 98
[2024-12-08] MEDS: SERTRALINE HCL 100 MG TABLET PO SCH (09:24)
[2024-12-08] MEDS: GABAPENTIN 300 MG CAPSULE PO SCH (09:24)
[2024-12-08 09:29] LABS: PLATELET COUNT (AUTO) 237 K/uL (150-450); RED BLOOD CELL COUNT(AUTO) 4.60 MIL/uL (4.50-5.90); RED CELL DISTRIBUTION WIDTH 13.6 % (11.5-14.5); WHITE BLOOD COUNT (AUTO) 5.3 K/uL (4.5-11.0)
[2024-12-08 09:56] LABS: APPEARANCE,URINE TURBID (CLEAR); GLUCOSE, URINE (UA) TRACE mg/dL (NEGATIVE); LEUKOCYTE ESTERASE ,URINE NEGATIVE (NEGATIVE); NITRATE,URINE NEGATIVE (NEGATIVE); OCCULT BLOOD,URINE NEGATIVE (NEGATIVE); PH,URINE DRUG SCREEN 6.0 (5.0-8.0); SPECIFIC GRAVITIY, URINE 1.029 (1.003-1.030)
[2024-12-08 09:57] LABS: ASPARTATE AMINOTRANSFERASE 19 U/L (15-37); CALCIUM, TOTAL 8.4 mg/dL (8.8-10.5); CHOL/HDL RATIO 3.4 (4.2-7.3); CREATININE 1.07 mg/dL (0.60-1.30); GLOMERULAR FILTR. RATE CALC > 60 mL/min (>60); GLUCOSE,RANDOM 94 mg/dL (70-110); LDL CHOL (CALC.) 76 mg/dL (0-130); SODIUM SERUM 141 mmol/L (136-145); TOTAL PROTEIN, SERUM 6.2 g/dL (6.4-8.2); UREA NITROGEN, BLOOD 13 mg/dL (7-18)
[2024-12-08 10:07] LABS: AMPHET/METH SCREEN,URINE POSITIVE (NEGATIVE); BARBITURATE SCREEN, URINE NEGATIVE (NEGATIVE); CANNABINOID SCREEN,URINE NEGATIVE (NEGATIVE); COCAINE SCREEN,URINE NEGATIVE (NEGATIVE); METHADONE SCREEN, URINE NEGATIVE (NEGATIVE)
[2024-12-08 10:13] LABS: AMORPHOUS SEDIMENT,UR Many /LPF (None Seen); SQUAMOUS EPITHELIAL CELL,UR Few /LPF (None Seen)
[2024-12-08 10:15] LABS: ALCOHOL, URINE DRUG SCREEN NEGATIVE (NEGATIVE)
[2024-12-08] MEDS: PRAZOSIN HCL 1 MG CAPSULE PO SCH (20:21)
[2024-12-08 20:57] VITALS: BP 116/73; PULSE 75; RESP 16; TEMP 98; O2SAT 100
[2024-12-09 08:17] VITALS: BP 103/73; PULSE 64; RESP 15; TEMP 97.4; O2SAT 98
[2024-12-09] MEDS ORDERED: MAGNESIUM HYDROXIDE SUSPENSION 30 ML UDCUP PO PRN (14:45)
[2024-12-09] MEDS ORDERED: ACETAMINOPHEN 325 MG TABLET PO PRN (14:45)
[2024-12-09] MEDS ORDERED: LOPERAMIDE HCL 2 MG CAPSULE PO PRN (14:45)
[2024-12-09] MEDS ORDERED: GuaiFENesin/D-METHORPHAN [SUGAR-FREE] 200-20MG/10 ML SYRUP UDCUP PO PRN (14:45)
[2024-12-09] MEDS ORDERED: MAG HYDROX/ALUMINUM HYD/SIMETH ES 30 ML SUSPENSION UDCUP PO PRN (14:45)
[2024-12-09] MEDS ORDERED: PROMETHAZINE HCL 25 MG TABLET PO PRN (14:45)
[2024-12-09] MEDS: THIAMINE 100 MG TABLET PO SCH (16:21)
[2024-12-09 20:11] VITALS: BP 101/63; PULSE 62; RESP 17; TEMP 97.4; O2SAT 96
[2024-12-09] MEDS: PRAZOSIN HCL 1 MG CAPSULE PO SCH (23:15)
[2024-12-10 08:11] VITALS: BP 100/60; PULSE 63; RESP 17; TEMP 97.4; O2SAT 96
[2024-12-10] MEDS: MULTIVITAMINS WITH MINERALS, THERAPEUTIC TABLET PO SCH (08:31)
[2024-12-10] MEDS: FOLIC ACID 1 MG TABLET PO SCH (08:31)
[2024-12-10] MEDS: SERTRALINE HCL 100 MG TABLET PO SCH (08:37)
[2024-12-10 09:52] LABS: CHOL/HDL RATIO 3.4 (4.2-7.3); LDL CHOL (CALC.) 82.0 mg/dL (0-130)
[2024-12-10] MEDS: TUBERCULIN, PURIFIED PROTEIN DERIVATIVE 5 TU/0.1 ML SYRINGE ID ONE (12:42)
[2024-12-10 20:15] VITALS: BP 110/89; PULSE 74; RESP 17; TEMP 97.5; O2SAT 97
[2024-12-11 08:03] VITALS: BP 96/60; PULSE 79; RESP 16; TEMP 97.6; O2SAT 97
[2024-12-11 20:12] VITALS: BP 102/73; PULSE 73; RESP 17; TEMP 97.4; O2SAT 96
[2024-12-12 08:04] VITALS: BP 120/77; PULSE 85; RESP 17; TEMP 97.4; O2SAT 98
[2024-12-12] MEDS: SERTRALINE HCL 100 MG TABLET PO SCH (09:01)
[2024-12-12 20:54] VITALS: BP 113/72; PULSE 67; RESP 17; TEMP 98.1; O2SAT 99
[2024-12-13 08:22] VITALS: BP 109/75; PULSE 89; RESP 18; TEMP 97.7; O2SAT 99
[2024-12-13 20:19] VITALS: BP 108/68; PULSE 68; RESP 17; TEMP 96.4; O2SAT 96
[2024-12-14 08:20] VITALS: BP 113/76; PULSE 92; RESP 17; TEMP 97.6; O2SAT 98
[2024-12-14 09:23] LABS: APPEARANCE,URINE CLEAR (CLEAR); GLUCOSE, URINE (UA) NEGATIVE (NEGATIVE); LEUKOCYTE ESTERASE ,URINE NEGATIVE (NEGATIVE); NITRATE,URINE NEGATIVE (NEGATIVE); OCCULT BLOOD,URINE NEGATIVE (NEGATIVE); SPECIFIC GRAVITIY, URINE 1.019 (1.003-1.030)
[2024-12-14 20:29] VITALS: BP 139/89; PULSE 65; RESP 18; TEMP 97.5; O2SAT 98
[2024-12-15 08:18] VITALS: BP 111/75; PULSE 88; RESP 18; TEMP 97.5; O2SAT 95
[2024-12-15] MEDS ORDERED: ARIP15TA27 PO (12:06)
[2024-12-15] MEDS ORDERED: SERT-162 PO (12:07)
[2024-12-15] MEDS ORDERED: PRAZ2 PO (12:08)
[2024-12-15] MEDS ORDERED: GABA-1181 PO (12:14)
[2024-12-15] MEDS ORDERED: THIA100T80 PO (12:16)
[2024-12-15] MEDS ORDERED: FOLI-130 PO (12:17)
== END 2024-12-15 13:45 | disposition home or self-care (01) | DRG 885 ==
LOC: B3A 05:35
PROVIDERS: ADMIT Psychiatry & Neurology Psychiatry; ATTEND Psychiatry & Neurology Psychiatry
DX: F25.0 Schizoaffective disorder, bipolar type (principal); R45.851 Suicidal ideations; E66.9 Obesity, unspecified; F41.9 Anxiety disorder, unspecified; F43.10 Post-traumatic stress disorder, unspecified; Z60.8 Other problems related to social environment; G47.00 Insomnia, unspecified; K59.00 Constipation, unspecified; F10.90 Alcohol use, unspecified, uncomplicated; Y90.8 Blood alcohol level of 240 mg/100 ml or more; F15.10 Other stimulant abuse, uncomplicated; Z68.32 Body mass index [BMI] 32.0-32.9, adult; Z79.899 Other long term (current) drug therapy; Z91.148 Patient's other noncompliance with medication regimen for other reason
CPT/HCPCS: 80053; 80061; 80307; 81001; 81003; 83036; 84436; 84443; 85025; 86592